=== PATIENT | female | born 1990 | race Caucasian/White ===

== ENCOUNTER 2016-06-28 03:21 | Emergency (ER) | payer BC ==
[~2016-06-28] VITALS: Ht 170.2 cm; Wt 68.2 kg
[2016-06-28 03:24] VITALS: TEMP 100.1
[2016-06-28 04:06] LABS: BASO % 0.3 % (0.0-2.0); EOS # 0.3 (0.0-0.7); EOS % 3.3 % (0-4.0); GRAN # 6.1 (1.4-6.5); GRAN % 70.7 % (42.2-75.2); HEMATOCRIT 35.9 % (37.0-47.0); HEMOGLOBIN 11.7 g/dl (12.5-16.0); LYMPH # 1.5 (1.2-3.4); LYMPH % 17.6 % (20.0-51.0); MEAN CELL VOLUME 87 fl (80.0-100.0); MEAN CORPUSCULAR HEMOGLOBIN 28 pg (27.0-31.0); MEAN CORPUSCULAR HGB CONC 33 g/dl (33.0-37.0); MEAN PLATELET VOLUME 9.8 fl (7.4-10.4); MONO # 0.7 (0.1-0.6); MONO % 7.9 % (1.7-9.3); PLATELET COUNT 215 K/mm3 (130-400); RED BLOOD COUNT 4.14 M/mm3 (4.10-5.30); REDCELL DISTRIBUTION WIDTH-CV 11.5 % (11.5-14.5); WHITE BLOOD COUNT 8.7 K/mm3 (4.8-10.8)
[2016-06-28 04:09] LABS: PH 7 (5-8); SQUAMOUS EPITHELIAL 0-2 /hpf; URINE APPEARANCE Clear; URINE BACTERIA None Seen /hpf; URINE BILIRUBIN Negative (NEGATIVE); URINE BLOOD Negative (NEGATIVE); URINE COLOR Yellow; URINE GLUCOSE Negative (NEGATIVE); URINE KETONE Negative (NEGATIVE); URINE RBC 0-2 /hpf; URINE UROBILINOGEN Negative (NEGATIVE); URINE WBC 0-2 /hpf
[2016-06-28 04:16] LABS: ADJUSTED CALCIUM 8.9 mg/dL (8.4-10.2); ALBUMIN 4.1 gm/dL (3.5-5.0); BILIRUBIN,TOTAL 0.5 mg/dL (0.0-1.0); CREATININE, serum 0.74 mg/dL (0.52-1.25); POTASSIUM 3.7 mmol/L (3.4-5.0); TOTAL PROTEIN 7.5 gm/dL (6.4-8.2)
[2016-06-28] MEDS ORDERED: ULTRAM 50MG TAB50 MG PO (04:51)
[2016-06-28] MEDS ORDERED: PERCOCET 325 MG1 TA2 PO (04:51)
[2016-06-28 05:26] VITALS: BP 111/65; PULSE 79
== END 2016-06-28 05:29 | disposition home or self-care (01) ==
LOC: COL.ER 03:21
PROVIDERS: Emergency Medicine
DX: R10.11 Right upper quadrant pain (principal)
CPT/HCPCS: J1170; J1885

== ENCOUNTER → 2016-06-28 | Outpatient (CLI) | payer BC ==
[~2016-06-28] MED LIST: PERCOCET 325 MG1 TA2 PO; ULTRAM 50MG TAB50 MG PO
== END ==
LOC: COL.RAD 12:44
DX: R10.11 Right upper quadrant pain (principal)

== ENCOUNTER → 2016-07-01 | Outpatient (CLI) | payer BC | LOC: COL.RAD 12:15 | DX: R10.11 Right upper quadrant pain (principal) ==

== ENCOUNTER → 2016-07-05 | Outpatient (CLI) | payer BC | LOC: COL.RAD 07:55 | DX: R10.11 Right upper quadrant pain (principal) | CPT/HCPCS: Q9967 ==